=== PATIENT | male | born 1960 | race Two or more races ===

== ENCOUNTER 2020-11-28 16:36 | Emergency (ER) | payer BC ==
[2020-11-28 16:55] VITALS: BP 164/95
--- NOTE | 2020-11-28 16:57 | ED Physician Documentation ---
PD HPI HEENT - Stated complaint Stated Complaint: RT EYE SWELLING - Chief complaint Chief Complaint: Heent - History obtained from History obtained from: Patient - Additional information Additional information: Developed some swelling of the right upper eyelid about 3 days ago. Sounds like he talk with his physician and a antibiotic eyedrop was called and he started it. The next day, 2 days ago was seen at an urgent care because of swelling was worsening. Diagnosed with potential preseptal cellulitis and antibiotics were begun. Continues to progress. He has difficulty opening the eye but when he can there is no visual deficit. Review of Systems Constitutional: denies: Fever, Chills Nose: denies: Rhinorrhea / runny nose, Congestion Throat: denies: Sore throat Cardiac: denies: Chest pain / pressure PD PAST MEDICAL HISTORY - Allergies Allergies/Adverse Reactions: Allergies Allergy/AdvReac Type Severity Reaction Status Date / Time aspirin Allergy Anaphylaxis Verified 11/28/20 16:57 PD ED PE NORMAL - Vitals Vital signs reviewed: Yes - General General: Alert and oriented X 3, No acute distress - HEENT HEENT: PERRL, EOMI, Other (He has a clear case of shingles in the right V1 dermatome with vesicles on the right side of the forehead and reactive swelling especially of the right side of the forehead and upper eyelid. There is no fluorescein uptake on the right.) - Neuro Neuro: Alert and oriented X 3, Normal speech Results - Vitals Vitals: Vital Signs - 24 hr 11/28/20 11/28/20 16:44 16:48 Temperature 37.2 C Heart Rate 125 H 109 H Respiratory 20 16 Rate Blood Pressure 175/92 H 164/95 H O2 Saturation 100 99 Oxygen O2 Source Room air Departure - Departure Disposition: 01 Home, Self Care Clinical Impression: Herpes zoster Qualifiers: Herpes zoster complications: without complications Qualified Code(s): B02.9 - Zoster without complications Condition: Good Record reviewed to determine appropriate education?: Yes Instructions: ED Shingles Comments: You can stop the antibiotics. You do not have a bacterial infection. You do need to take the antiviral medication Valtrex 3 times a day, first dose is soon as you at the pharmacy tonight and second dose before bedtime, then going through 3 times a day. The steroids help with the inflammation and decrease pain in the area. Return if worsening. Also return immediately if you develop any decrease in vision.
== END 2020-11-28 17:04 | disposition home or self-care (01) ==
LOC: ED 16:36
DX: B02.9 Zoster without complications (principal)
CPT/HCPCS: 99282; 99283